=== PATIENT | male | born 1950 | race Caucasian/White ===

== ENCOUNTER 2019-11-27 17:35 | Inpatient (IN) | payer MEDICARE, MEDICAID ==
[~2019-11-27] VITALS: Ht 175.3 cm; Wt 95.5 kg
[~2019-11-27 17:35] MED LIST: AMAN100C18 PO; APIX5TAB3 PO; CARB1TAB PO; CITA20TA16 PO; LEVE250T4 PO; LISI-642 PO; LORA0.5T PO; PRAM0.5T3 PO; TAMS0.4C32 PO
[2019-11-27] MEDS ORDERED: morphine 2 MG/ML inj. syringe IV ONE (18:15)
[2019-11-27] MEDS ORDERED: normal saline 1000ML IV soln IVB ONE (18:15)
--- NOTE | 2019-11-27 18:30 | NUR ---
STOOL SAMPLE SENT TO LAB FOR C-DIFF TEST
[2019-11-27 18:51] LABS: BASOPHILS % (AUTO) 0.5 % (0-1); EOSINOPHILS # (AUTO) 0.3 X10'3 (0-0.9); EOSINOPHILS % (AUTO) 3.8 % (0-6); HEMATOCRIT 42.3 % (42.0-52.0); HEMOGLOBIN 13.7 g/dl (14.0-17.9); LYMPHOCYTES # (AUTO) 1.4 X10'3 (1.1-4.8); LYMPHOCYTES % (AUTO) 19.4 % (21-51); MEAN CORPUSCULAR HEMOGLOBIN 28.8 PG (27.0-31.0); MEAN CORPUSCULAR HGB CONC 32.5 g/dL (33.0-36.5); MEAN CORPUSCULAR VOLUME 88.6 FL (78-98); MEAN PLATELET VOLUME 8.8 FL (7.4-10.4); MONOCYTES # (AUTO) 0.8 X10'3 (0-0.9); MONOCYTES % (AUTO) 11.3 % (2-12); NEUTROPHILS # (AUTO) 4.8 X10'3 (1.8-7.7); PLATELET COUNT 181 X10'3 (140-440); RED BLOOD COUNT 4.78 X10'6 (4.70-6.10); RED CELL DISTRIBUTION WIDTH 16.3 % (11.5-14.5); WHITE BLOOD COUNT 7.3 X10'3 (4.5-11.0)
[2019-11-27 19:04] LABS: PARTIAL THROMBOPLASTIN TIME 32 SECONDS (22-32)
[2019-11-27 19:08] LABS: ALANINE AMINOTRANSFERASE 9 U/L (12-78); ALBUMIN 3.3 G/DL (3.4-5.0); ALBUMIN/GLOBULIN RATIO 1.1 (1.1-1.5); ALKALINE PHOSPHATASE 74 IU/L (46-116); ANION GAP 7 (8-16); ASPARTATE AMINO TRANSFERASE 11 U/L (10-37); BILIRUBIN,TOTAL 0.7 MG/DL (0.1-1.0); BLOOD UREA NITROGEN 12 MG/DL (7-18); BUN/CREATININE RATIO 13.6 (5.4-32.0); CHLORIDE 110 MMOL/L (99-107); CREATININE 0.88 MG/DL (0.60-1.10); GLUCOSE 98 MG/DL (70-104); LIPASE 76 U/L (73-393); SODIUM 147 MMOL/L (135-145); TOTAL CARBON DIOXIDE 30.1 MMOL/L (24-32); TOTAL PROTEIN 6.3 G/DL (6.4-8.2); eGFR 86 ML/MIN
[2019-11-27 19:09] LABS: POTASSIUM 2.9 MMOL/L (3.5-5.1)
--- NOTE | 2019-11-27 19:10 | NUR ---
MATILDE THOMAS OF THE PATIENTS' K LEVEL.
[2019-11-27] MEDS ORDERED: iohexol 300mg/ml 100ml inj. ONE (19:24)
[2019-11-27] MEDS ORDERED: potassium chloride 10mEq ER tablet PO STA (19:39)
[2019-11-27] MEDS ORDERED: potassium Cl 10 mEq/100mL bag IV ONE (20:20)
[2019-11-27] MEDS ORDERED: magnesium 4gm in 100ml NS 100 ML IV PRN (20:30)
[2019-11-27] MEDS ORDERED: potassium Cl 20 mEq SR tablet PO PRN (20:30)
[2019-11-27] MEDS ORDERED: magnesium 2GM in 50ml NS 50 ML IV PRN (20:30)
[2019-11-27] MEDS ORDERED: acetaminophen 325mg tablet PO PRN (20:30)
[2019-11-27] MEDS ORDERED: ipratropium/albuterol 3ml nebule NEB PRN (20:30)
[2019-11-27] MEDS ORDERED: HYDROmorphone inj. 0.5 MG/0.5 ML DISP.SYRIN IV PRN (20:30)
[2019-11-27] MEDS ORDERED: potassium CL 10mEq/100ml bag 100 ML IV PRN ×2 (20:30)
[2019-11-27] MEDS ORDERED: ondansetron/PF 4mg/2ml inj IV PRN (20:30)
[2019-11-27] MEDS: potassium Cl 20mEq in NS 1,000 ML IV SCH ×2 (20:30→22:19)
[2019-11-27] MEDS ORDERED: mag hydrox/Alum hydrox/simeth 30ml oral suspension PO PRN (20:30)
[2019-11-27] MEDS ORDERED: OXYC30TA PO (21:03)
[2019-11-27] MEDS ORDERED: NYST60PO2 TOP (21:09)
--- NOTE | 2019-11-27 21:10 | NUR ---
PT TO BE ADMITTED FOR SBO, NG NOW IN PLACE. PTS CALLED (GRISELDA, ) TO CLARIFY LAST DOSES OF MEDS FOR MED REC. MED REC NOW COMPLETED. MEERA, PT WILL NEED HIS: ELIQUIS, AMANTADINE, KEPPRA, CARBO/LEVODOPA, AND MIRAPEX. PT HAS PRN ATIVAN AND OXYCODONE FOR HIS PAIN. PT AWAITING HOSPITALIST.
[2019-11-27 21:28] LABS: COLOR,URINE YELLOW (Yellow); GLUCOSE, URINE NEGATIVE (Neg); KETONES,URINE NEGATIVE (Neg); LEUKOCYTE ESTERASE ,URINE NEGATIVE (Neg); NITRITES, URINE POSITIVE (Neg); OCCULT BLOOD,URINE NEGATIVE (Neg); PH,URINE 5.5 (4.8-8.0); PROTEIN,URINE NEGATIVE (Neg)
[2019-11-27 21:29] LABS: CLARITY,URINE SLIGHTLY CLOUDY (Clear); UA COLLECTION TYPE URINAL
--- NOTE | 2019-11-27 21:32 | NUR ---
DR QUINTERO AT BEDSIDE. PT WITH IPA, 353A, REPORT CALLED TO FLOOR BY RN MEGAN. PTS TOTAL GASTRIC OUTPUT 1100. DR. QUINTERO AWARE. PT REPORTS RELIEF OF NAUSEA.
[2019-11-27 21:41] LABS: BACTERIA,URINE FEW /HPF (Neg); RBC,URINE NONE SEEN /HPF (0-2); SQUAMOUS EPITHELIAL CELL,UR FEW /LPF (FEW); WBC,URINE 0-4 /HPF (0-4)
[2019-11-27] MEDS ORDERED: nystatin 15 GM powder TP PRN (22:00)
[2019-11-27 22:40] VITALS: BP 146/93
[2019-11-28] VITALS: BP_SYST 133; BP_SYST 146; BP_DIAS 45; BP_DIAS 94
[2019-11-28] MEDS: heparin, porcine 5000 units/ml vial SQ SCH ×3 (00:33→16:18)
--- NOTE | 2019-11-28 00:35 | NUR ---
Paged Dr. Mathias RE: concurrent orders for protonix drop r/t melena and Q8 heparin injections. Dr. Mathias stated that both were fine as long as patient doesn't turn anemic. Okay'd use of both.
[2019-11-28] MEDS: pantoprazole 40MG/NS 100ML BAG 100 ML IV SCH ×4 (01:51→21:19)
[2019-11-28 06:18] LABS: BASOPHILS % (AUTO) 0.4 % (0-1); EOSINOPHILS # (AUTO) 0.4 X10'3 (0-0.9); EOSINOPHILS % (AUTO) 5.5 % (0-6); HEMATOCRIT 38.4 % (42.0-52.0); HEMOGLOBIN 12.5 g/dl (14.0-17.9); LYMPHOCYTES # (AUTO) 1.5 X10'3 (1.1-4.8); LYMPHOCYTES % (AUTO) 20.5 % (21-51); MEAN CORPUSCULAR HEMOGLOBIN 28.6 PG (27.0-31.0); MEAN CORPUSCULAR HGB CONC 32.6 g/dL (33.0-36.5); MEAN CORPUSCULAR VOLUME 87.5 FL (78-98); MEAN PLATELET VOLUME 9.1 FL (7.4-10.4); MONOCYTES # (AUTO) 0.7 X10'3 (0-0.9); MONOCYTES % (AUTO) 9.8 % (2-12); NEUTROPHILS # (AUTO) 4.5 X10'3 (1.8-7.7); NEUTROPHILS % (AUTO) 63.8 % (42-75); PLATELET COUNT 171 X10'3 (140-440); RED BLOOD COUNT 4.39 X10'6 (4.70-6.10); RED CELL DISTRIBUTION WIDTH 16.1 % (11.5-14.5); WHITE BLOOD COUNT 7.1 X10'3 (4.5-11.0)
[2019-11-28 06:20] LABS: OCCULT BLOOD STOOL NEGATIVE (Neg)
--- NOTE | 2019-11-28 06:22 | NUR ---
RECEIVED REPORT FROM TOILIA PARMAR
[2019-11-28 06:31] LABS: ALANINE AMINOTRANSFERASE 11 U/L (12-78); ALBUMIN/GLOBULIN RATIO 1.2 (1.1-1.5); ALKALINE PHOSPHATASE 67 IU/L (46-116); ANION GAP 7 (8-16); ASPARTATE AMINO TRANSFERASE 10 U/L (10-37); BILIRUBIN,TOTAL 0.7 MG/DL (0.1-1.0); BLOOD UREA NITROGEN 9 MG/DL (7-18); BUN/CREATININE RATIO 10.7 (5.4-32.0); CALCIUM 7.6 MG/DL (8.5-10.1); CHLORIDE 113 MMOL/L (99-107); CREATININE 0.84 MG/DL (0.60-1.10); GLUCOSE 77 MG/DL (70-104); MAGNESIUM 1.6 MG/DL (1.5-2.4); POTASSIUM 3.1 MMOL/L (3.5-5.1); SODIUM 150 MMOL/L (135-145); TOTAL CARBON DIOXIDE 30.2 MMOL/L (24-32); TOTAL PROTEIN 5.6 G/DL (6.4-8.2); eGFR > 90 ML/MIN
[2019-11-28 07:00] VITALS: BP 178/101
[2019-11-28] MEDS: K and/or MAG REPLACEMENT MC SCH ×2 (08:00→20:00)
[2019-11-28] MEDS: amantadine 100 MG capsule PO SCH ×3 (08:00→21:18)
[2019-11-28] MEDS: tamsulosin 0.4mg capsule PO SCH (08:00)
[2019-11-28] MEDS: HYDROmorphone 1 mg/ml syringe IV PRN ×2 (08:27→21:57)
[2019-11-28] MEDS: citalopram 20mg tablet PO SCH (08:36)
[2019-11-28] MEDS: levetiracetam 250mg tablet PO SCH ×2 (08:37→21:18)
[2019-11-28] MEDS: potassium Cl 20 mEq SR tablet PO PRN ×3 (08:39→17:33)
[2019-11-28] MEDS: potassium Cl 20mEq in NS 1,000 ML IV SCH (08:54)
--- NOTE | 2019-11-28 08:59 | NUR ---
SCANNER ON COMPUTER IS NOT WORKING. CHECKED ALL MEDS PRIOR TO ADMINISTRATION. CONTINUE TO MONITOR.
[2019-11-28] MEDS: hydrALAZINE 20mg/ml inj. IV PRN (10:48)
[2019-11-28 11:00] VITALS: BP 155/105
[2019-11-28] MEDS: sodium chloride 0.45% 1,000 ML IV SCH (13:34)
--- NOTE | 2019-11-28 15:00 | NUR ---
Diogenes consult: Diogenes Gomez; skin intact. Addendum: 11/28/19 at [address] Amended: Links added.
--- NOTE | 2019-11-28 15:36 | NUR ---
Patient in room [facility]. I have received report from GINA BINGHAM and had the opportunity to ask questions and assume patient care.
[2019-11-28 18:00] VITALS: BP 145/95
--- NOTE | 2019-11-28 18:24 | NUR ---
GAVE REPORT TO OTILIA NAILS
--- NOTE | 2019-11-28 19:40 | NUR ---
Patient in room [facility]. I have received report from Jacqueline BINGHAM and had the opportunity to ask questions and assume patient care.
[2019-11-28] MEDS ORDERED: pramipexole 0.25mg tablet PO SCH (21:00)
[2019-11-29] VITALS: BP 158/98
[2019-11-29] MEDS: sodium chloride 0.45% 1,000 ML IV SCH ×2 (01:10→10:41)
[2019-11-29] MEDS: heparin, porcine 5000 units/ml vial SQ SCH ×2 (01:14→07:21)
[2019-11-29 05:39] LABS: ALANINE AMINOTRANSFERASE 8 U/L (12-78); ALBUMIN 3.3 G/DL (3.4-5.0); ALKALINE PHOSPHATASE 80 IU/L (46-116); ANION GAP 9 (8-16); ASPARTATE AMINO TRANSFERASE 13 U/L (10-37); BILIRUBIN,TOTAL 1.2 MG/DL (0.1-1.0); BLOOD UREA NITROGEN 6 MG/DL (7-18); BUN/CREATININE RATIO 7.8 (5.4-32.0); CALCIUM 8.2 MG/DL (8.5-10.1); CHLORIDE 108 MMOL/L (99-107); CREATININE 0.77 MG/DL (0.60-1.10); GLUCOSE 66 MG/DL (70-104); MAGNESIUM 1.5 MG/DL (1.5-2.4); POTASSIUM 3.3 MMOL/L (3.5-5.1); SODIUM 144 MMOL/L (135-145); TOTAL PROTEIN 6.5 G/DL (6.4-8.2); eGFR > 90 ML/MIN
--- NOTE | 2019-11-29 06:30 | NUR ---
Problems reprioritized. Patient report given, questions answered & plan of care reviewed with SHANNON BINGHAM.
--- NOTE | 2019-11-29 06:30 | NUR ---
RECEIVED REPORT FROM OTILIA NAILS
[2019-11-29] MEDS: HYDROmorphone 1 mg/ml syringe IV PRN ×4 (06:39→20:53)
[2019-11-29 07:04] LABS: BASOPHILS % (AUTO) 0.2 % (0-1); EOSINOPHILS # (AUTO) 0.2 X10'3 (0-0.9); EOSINOPHILS % (AUTO) 1.8 % (0-6); HEMATOCRIT 46.2 % (42.0-52.0); HEMOGLOBIN 14.9 g/dl (14.0-17.9); MEAN CORPUSCULAR HEMOGLOBIN 28.3 PG (27.0-31.0); MEAN CORPUSCULAR HGB CONC 32.2 g/dL (33.0-36.5); MEAN CORPUSCULAR VOLUME 87.9 FL (78-98); MEAN PLATELET VOLUME 8.9 FL (7.4-10.4); MONOCYTES # (AUTO) 0.9 X10'3 (0-0.9); MONOCYTES % (AUTO) 8.2 % (2-12); NEUTROPHILS # (AUTO) 8.4 X10'3 (1.8-7.7); NEUTROPHILS % (AUTO) 79.8 % (42-75); PLATELET COUNT 184 X10'3 (140-440); RED BLOOD COUNT 5.26 X10'6 (4.70-6.10); RED CELL DISTRIBUTION WIDTH 15.9 % (11.5-14.5); WHITE BLOOD COUNT 10.5 X10'3 (4.5-11.0)
[2019-11-29] MEDS: hydrALAZINE 20mg/ml inj. IV PRN (07:15)
[2019-11-29] MEDS: potassium Cl 20 mEq SR tablet PO PRN ×2 (07:17→12:35)
[2019-11-29] MEDS: levetiracetam 250mg tablet PO SCH ×2 (07:17→23:10)
[2019-11-29] MEDS: amantadine 100 MG capsule PO SCH ×2 (07:18→12:35)
[2019-11-29] MEDS: citalopram 20mg tablet PO SCH (07:18)
[2019-11-29] MEDS: tamsulosin 0.4mg capsule PO SCH (07:33)
[2019-11-29] MEDS: K and/or MAG REPLACEMENT MC SCH ×2 (07:34→20:00)
[2019-11-29 08:54] VITALS: BP 151/108
[2019-11-29] MEDS: LORazepam 0.5 MG tablet PO PRN (09:27)
--- NOTE | 2019-11-29 13:11 | NUR ---
PRESSURE ULCER EDUCATION: DEFINITION: A pressure ulcer is an area of skin that breaks down when you stay in one position too long. The constant pressure against the skin reduces the blood flow to that area and the affected tissue dies. CAUSES: "Being bedridden or in a wheelchair "Fragile skin "Having a chronic condition, such as diabetes or vascular disease "Inability to move certain parts of your body without assistance "Older age "Incontinence of urine or stool SYMPTOMS: "A reddened area that DOES NOT turn white when pressed on - this can be the beginning of a pressure ulcer "A blister, deep sore or a crater - these can be advanced pressure ulcers FIRST AID: "Relieve the pressure on this area "Keep the area clean and dry "Call your primary doctor if you see any of the above symptoms "DO NOT massage the area "DO NOT use a donut shaped or ring shaped pillow- these actually interfere with the blood flow and cause complications PREVENTION: "Check for pressure ulcers everyday "Change position at least every two hours to relieve pressure "Use items that help relieve pressure- pillows, sheepskin, foam padding, and powders. "Keep skin clean and dry "Eat healthy well balanced meals "Exercise daily IF YOU SEE ANY OF THESE SYMPTOMS WHILE IN THE HOSPITAL - TELL YOUR NURSE IMMEDIATELY. IF YOU SEE ANY OF THESE SYMPTOMS WHILE AT HOME OR HAVE ANY QUESTIONS OR CONCERNS ABOUT PRESSURE ULCERS - CALL YOUR PRIMARY DOCTOR IMMEDIATELY. Addendum: 11/29/19 at 1312 by Julissa Cervantes RN Amended: Links added.
[2019-11-29] MEDS: mineral oil/petrolatum, white cream 113gm jar TP SCH ×2 (13:30→23:09)
[2019-11-29 14:05] VITALS: BP 162/109
--- NOTE | 2019-11-29 18:37 | NUR ---
got report from Jacqueline BINGHAM.
--- NOTE | 2019-11-29 18:50 | NUR ---
Patient in room [facility]. I have received report from Jacqueline BINGHAM and had the opportunity to ask questions and assume patient care.
--- NOTE | 2019-11-29 18:52 | NUR ---
gave report to jerry mina
--- NOTE | 2019-11-29 19:44 | NUR ---
MD re-instated parkinsons and anti-seizure meds for patient as day nurse stated that he seemed very shaky.
[2019-11-29 20:00] VITALS: BP 166/107
--- NOTE | 2019-11-29 20:00 | NUR ---
As patient DNR/comfort care status, did not give K replacement per obgyn hospitalist physician. Will check with MD today to see if order should be cancelled or not.
[2019-11-29] MEDS ORDERED: pramipexole 0.25mg tablet PO SCH (21:00)
[2019-11-29] MEDS ORDERED: amantadine 100mg/10ml UD oral solution PO SCH ×2 (21:00→23:01)
[2019-11-29] MEDS ORDERED: amantadine 100mg/10ml UD oral solution PO ONE (23:05)
[2019-11-30 05:05] LABS: BASOPHILS % (AUTO) 0.4 % (0-1); EOSINOPHILS # (AUTO) 0.2 X10'3 (0-0.9); EOSINOPHILS % (AUTO) 2.7 % (0-6); HEMATOCRIT 43.3 % (42.0-52.0); LYMPHOCYTES # (AUTO) 1.1 X10'3 (1.1-4.8); MEAN CORPUSCULAR HEMOGLOBIN 28.4 PG (27.0-31.0); MEAN CORPUSCULAR HGB CONC 32.4 g/dL (33.0-36.5); MEAN CORPUSCULAR VOLUME 87.9 FL (78-98); MEAN PLATELET VOLUME 9.2 FL (7.4-10.4); MONOCYTES # (AUTO) 0.8 X10'3 (0-0.9); MONOCYTES % (AUTO) 10.9 % (2-12); NEUTROPHILS # (AUTO) 5.6 X10'3 (1.8-7.7); PLATELET COUNT 184 X10'3 (140-440); RED BLOOD COUNT 4.93 X10'6 (4.70-6.10); RED CELL DISTRIBUTION WIDTH 16.2 % (11.5-14.5); WHITE BLOOD COUNT 7.8 X10'3 (4.5-11.0)
[2019-11-30 05:15] LABS: ALANINE AMINOTRANSFERASE 8 U/L (12-78); ALKALINE PHOSPHATASE 73 IU/L (46-116); ANION GAP 10 (8-16); ASPARTATE AMINO TRANSFERASE 24 U/L (10-37); BILIRUBIN,TOTAL 1.3 MG/DL (0.1-1.0); BLOOD UREA NITROGEN 10 MG/DL (7-18); BUN/CREATININE RATIO 13.3 (5.4-32.0); CALCIUM 8.1 MG/DL (8.5-10.1); CHLORIDE 105 MMOL/L (99-107); CREATININE 0.75 MG/DL (0.60-1.10); GLUCOSE 66 MG/DL (70-104); MAGNESIUM 1.5 MG/DL (1.5-2.4); POTASSIUM 3.3 MMOL/L (3.5-5.1); SODIUM 139 MMOL/L (135-145); TOTAL CARBON DIOXIDE 24.1 MMOL/L (24-32); TOTAL PROTEIN 6.1 G/DL (6.4-8.2); eGFR > 90 ML/MIN
--- NOTE | 2019-11-30 06:35 | NUR ---
Reported off to Raeann BINGHAM and practical nursing faculty.
--- NOTE | 2019-11-30 06:44 | NUR ---
Received report from Ciara BINGHAM
[2019-11-30 07:32] VITALS: BP 177/104
[2019-11-30] MEDS: levetiracetam 250mg tablet PO SCH (07:36)
[2019-11-30] MEDS: LORazepam 0.5 MG tablet PO PRN (07:36)
[2019-11-30] MEDS: amantadine 100mg/10ml UD oral solution PO SCH ×2 (07:37→13:17)
[2019-11-30] MEDS: mineral oil/petrolatum, white cream 113gm jar TP SCH (07:37)
[2019-11-30] MEDS ORDERED: pantoprazole 40 MG vial IV SCH (08:00)
[2019-11-30] MEDS: K and/or MAG REPLACEMENT MC SCH (08:16)
[2019-11-30 12:07] VITALS: BP 154/111
--- NOTE | 2019-11-30 16:41 | NUR ---
Patient was discharged iv and tele was removed from patient. Patient was alert at time of dischargee. [place] [facility]
== END 2019-11-30 15:00 | DRG 389 ==
LOC: ER 17:36 → ED HOLD 20:30 → SUR 3N 21:51
PROVIDERS: ADMIT Family Medicine; ATTEND Family Medicine
PROC: 0D9670Z Drainage of Stomach with Drainage Device, Via Natural or Artificial Opening (ICD-10-PCS; principal; 2019-11-27)
PROC: BW211ZZ Computerized Tomography (CT Scan) of Abdomen and Pelvis using Low Osmolar Contrast (ICD-10-PCS; 2019-11-27)
DX: K56.609 Unspecified intestinal obstruction, unspecified as to partial versus complete obstruction (principal); E87.0 Hyperosmolality and hypernatremia; K92.1 Melena; E86.0 Dehydration; I10 Essential (primary) hypertension; G20 Parkinson's disease; E87.6 Hypokalemia; R30.0 Dysuria; I87.2 Venous insufficiency (chronic) (peripheral); I48.91 Unspecified atrial fibrillation; B19.20 Unspecified viral hepatitis C without hepatic coma; M54.9 Dorsalgia, unspecified; F12.90 Cannabis use, unspecified, uncomplicated; F32.9 Major depressive disorder, single episode, unspecified; G89.29 Other chronic pain; Z83.3 Family history of diabetes mellitus; Z86.711 Personal history of pulmonary embolism; Z87.442 Personal history of urinary calculi; Z87.891 Personal history of nicotine dependence; Z88.0 Allergy status to penicillin; Z79.899 Other long term (current) drug therapy; Z51.5 Encounter for palliative care
CPT/HCPCS: 36415; 74177; 80053; 81001; 82272; 83690; 83735; 84484; 85025; 85610; 85730; 87077; 87081; 87088; 87186; 87324; 87449; 93005; 94760; 96374; 97110; 97162; 97530; 99285; C9113; G0378; J0360; J1170; J1644; J2270; J3480; J7030; Q9967